=== PATIENT | female | born 1990 | race Caucasian/White ===

== ENCOUNTER 2016-06-06 20:43 | Emergency (ER) | payer MEDICAID ==
[~2016-06-06] VITALS: Wt 67.5 kg
[2016-06-06 23:24] LABS: ADD UMIC YES; URINE BILIRUBIN (Dip) NEGATIVE (NEGATIVE); URINE BLOOD (Dip) NEGATIVE (NEGATIVE); URINE COLOR LT. YELLOW (YELLOW); URINE GLUCOSE (Dip) NEGATIVE (NEGATIVE); URINE KETONES (Dip) TRACE (NEGATIVE); URINE LEUKOCYTE ESTERASE (Dip) 1+ (NEGATIVE); URINE NITRITE (Dip) NEGATIVE (NEGATIVE); URINE TOTAL PROTEIN (Dip) NEGATIVE (NEGATIVE); URINE UROBILINOGEN (Dip) 0.2 E.U./dL (0.1-1.0)
[2016-06-06 23:44] LABS: BACTERIA,URINE FEW; SQUAMOUS EPITHELIAL CELL,UR FEW; URINE RBCS 0-2 /HPF (0)
[2016-06-07] MEDS ORDERED: METR500T PO (00:03)
[2016-06-07 00:14] VITALS: BP 121/73; PULSE 86; RESP 18; TEMP 98.5
--- NOTE | 2016-06-07 02:25 | ERA ---
ER Documentation Chief Complaint Date/Time DATE: 06/07/16 TIME: 02:21 Chief Complaint Vaginal itch needs cream and 21 weeks . no contraction HPI Patient is a 26-year-old female who presents with a chief complaint of vaginal itching 1 week. Patient is 8 months and has had vaginal pruritus of 1 week denying any symptoms of dysuria, hematuria, oliguria, frequency increase , abdominal discomfort, back pain, dyspareunia, discharge, foul odor, or spotting/vaginal bleeding. She has not done anything to improve her symptoms. Patient has never had symptoms like this before. ROS All systems reviewed and are negative except as per history of present illness. Medications Home Meds Active Scripts Metronidazole* (Flagyl*) 500 Mg Tablet, 250 MG PO TID for 7 Days, TAB Prov:SHAY LUNA PA-C 06/07/16 Allergies Allergies: Coded Allergies: No Known Allergy (Unverified , 06/06/16) PMhx/Soc Medical and Surgical Hx: pt denies Medical Hx, pt denies Surgical Hx Hx Alcohol Use: No Hx Substance Use: No Hx Tobacco Use: No Smoking Status: Never smoker Physical Exam Vitals Vital Signs Date Time Temp Pulse Resp B/P Pulse Ox O2 Delivery O2 Flow Rate FiO2 06/07/16 00:14 98.5 86 18 121/73 100 Room Air 06/06/16 21:26 98.6 91 20 112/68 100 Physical Exam Const: Well-appearing 8 month 26-year-old female. Head: Atraumatic Eyes: Normal Conjunctiva ENT: Normal External Ears, Nose and Mouth. Neck: Full range of motion..~ No meningismus. Resp: Clear to auscultation bilaterally Cardio: Regular rate and rhythm, no murmurs Abd: Soft, non tender, non distended. Normal bowel sounds Skin: No petechiae or rashes Back: No midline or flank tenderness Ext: No cyanosis, or edema Neur: Awake and alert Psych: Normal Mood and Affect Results 24 hrs Laboratory Tests Test 06/06/16 22:50 Urine Color LT. YELLOW Urine Clarity CLEAR Urine pH 7.5 Urine Specific [place] 1.020 Urine Ketones TRACE Urine Nitrite NEGATIVE Urine Bilirubin NEGATIVE Urine Urobilinogen 0.2 E.U./dL Urine Leukocyte Esterase 1+ Urine Microscopic RBC 0-2/HPF Urine Microscopic WBC 2-5/HPF Urine Squamous Epithelial Cells FEW Urine Amorphous Phosphates FEW Urine Bacteria FEW Urine Hemoglobin NEGATIVE Urine Glucose NEGATIVE% Urine Total Protein NEGATIVE Procedures/MDM Patient has the sole symptom of itching without any other constitutional or focal findings and history or exam. Obtain a urinalysis to rule out infection of the urinary tract. Urinalysis was negative. We will go ahead and treat for suspected bacterial infection. History given involves no new sexual partners. History of sexual activity was obtained from patient and patient's separately. I talked to the and the nurse talk to patient. Due to this I will go ahead and treat for bacterial vaginosis/Trichomonas with metronidazole since she is past the first trimester. I have spoke with my attending about the assessment and plan of this case and he is in agreement. Departure Diagnosis: Primary Impression: BV (bacterial vaginosis) Condition: Stable Patient Instructions: Vaginal Infection: Bacterial Vaginosis Additional Instructions: Return to ER if symptoms worsen or change. follow up with press operator heavy duty in the next 2- 3 days SHAY LUNA PA-C Jun 07, 2016 02:25
== END 2016-06-07 00:15 | disposition home or self-care (01) ==
LOC: FTE 20:43
DX: O23.592 Infection of other part of genital tract in pregnancy, second trimester (principal); B96.89 Other specified bacterial agents as the cause of diseases classified elsewhere; Z3A.21 21 weeks gestation of pregnancy
CPT/HCPCS: 81001; 81003; Z7502; 99283

== ENCOUNTER 2016-09-14 12:06 | Inpatient (IN) | payer MEDICAID ==
[~2016-09-14] VITALS: Ht 149.9 cm; Wt 69.4 kg
[~2016-09-14 12:06] MED LIST: METR500T PO
[2016-09-14 12:16] VITALS: Ht 149.9 cm; Wt 69.4 kg
[2016-09-14] MEDS ORDERED: PRENAT PO (12:16)
[2016-09-14 12:18] VITALS: BP 118/74; PULSE 90; RESP 18
[2016-09-14] MEDS: LACTATED RINGER'S 1,000 ML IV SCH ×2 (13:00→18:00)
[2016-09-14] MEDS ORDERED: AMPICILLIN 2 GM/NS (PMX) 100 ML IVPB ONE ×2 (13:00→19:00)
[2016-09-14] MEDS ORDERED: BETAMET NA PHOS/AC(6 MG/ML) 5ML INJ IM ONE ×2 (13:00→14:00)
[2016-09-14] MEDS ORDERED: LACTATED RINGER'S 1,000 ML IV SCH (13:32)
[2016-09-14] MEDS ORDERED: LACTATED RINGER'S 1,000 ML IV PRN (13:32)
--- NOTE | 2016-09-14 13:38 | TRIAGE ---
OB Triage Datetime Report Generated by CPN: 09/14/2016 13:38 Datetime: 09/14/2016 13:15 Stage of : OB Triage Maternal Assessment Level of Consciousness: Fully Conscious Labor Evaluation Frequency: 1-4 Monitor Mode: External Quality: Moderate Resting Tone Dixie: Relaxed Heart Rate FHR Baseline Rate: 135 Monitor Mode: External US Variability: Moderate 6-25 bpm Accelerations: 15X15 Decelerations: None Category: Category I Pain Assessment Pain Scale: 4 Pain Presence: Intermittent Pain Type: Cramping Pain Location: Abdomen Pain Goal: 3 Pain Relief Measures: Comfort Measures Membrane Status: Ruptured Vaginal Bleeding: Normal Show Datetime: 09/14/2016 12:47 Vaginal Exam Dilatation (cms): 3.5 Effacement (%): 80 Station: -2 Exam By: tara Membrane Status: Ruptured Membranes Rupture Method: Spontaneous Amniotic Fluid Color: Clear Amniotic Fluid Amount: Moderate Amniotic Fluid Odor: Normal Vaginal Bleeding: Normal Show Pool: Positive Nitrazine: Positive Cervix, Consistency: Soft Cervix, Position: Midposition Presentation 'A': Cephalic Datetime: 09/14/2016 12:15 Assessment Type: Triage Maternal Assessment Level of Consciousness: Fully Conscious DTR's/Clonus: DTRs 2+; No Clonus Headache: Denies Blurred Vision: No Respiratory Effort: Unlabored; Regular Rhythm; Equal Expansion Breath Sounds, Left: Clear and Equal Breath Sounds, Right: Clear and Equal Nausea/Vomiting: Denies RUQ Epigastric Pain: Denies Lower Extremities Edema: None Degree: None Upper Extremities Edema: None Degree: None Facial Edema: None Fall Risk Assessment History of Falling: (0) No Secondary Diagnosis: (0) No Ambulatory Aid: (0) Bedrest/Nurse Assist IV Therapy: (0) No Gait: (0) Normal/Bedrest/Immobile Mental Status: (0) Oriented to Own Ability Fall Score: 0 Fall Risk Score Definition: No Risk: No action required Datetime: 09/14/2016 12:13 Time of Arrival: 09/14/2016 12:00 EGA: 35.3 Arrived By: Ambulatory Arrived From: Home Chief Complaint: pt here c/o possible srom Movement: Present Contractions: Irregular Rupture of Membranes: Unsure Vaginal Bleeding: None Vaginal Discharge: Denies Recent Sexual Intercouse: Denies Abdominal Trauma: Not Applicable Patient Complaints: None Time Provider Notified: 09/14/2016 12:55 Provider Notified: LAVONNE Initial Plan: SVE, BPP, STERILE SPEC., NITRA, ROM PLUS, EFW Datetime: 09/14/2016 12:10 Monitor Mode: External Monitor Mode: External US
[2016-09-14] MEDS ORDERED: LIDOCAINE 1% (MPF) 30 ML INJ INJ PRN (14:00)
[2016-09-14] MEDS ORDERED: CARBOPROST 250 MCG INJ IM PRN ×2 (14:00→22:00)
[2016-09-14] MEDS ORDERED: BUTORPHANOL 2 MG INJ IV PRN (14:00)
[2016-09-14] MEDS ORDERED: METHYLERGONOVINE 0.2 MG INJ IM PRN ×2 (14:00→22:00)
[2016-09-14] MEDS ORDERED: MINERAL OIL LIGHT 10 ML VIAL TOP PRN (14:00)
[2016-09-14] MEDS ORDERED: OXYTOCIN 30 UNITS/LR 500 ML IV PRN ×2 (14:00→22:00)
[2016-09-14] MEDS ORDERED: MISOPROSTOL 200 MCG TAB PR PRN ×2 (14:00→22:00)
[2016-09-14] MEDS ORDERED: IBUPROFEN 600 MG TAB PO PRN ×2 (14:00)
[2016-09-14] MEDS ORDERED: OXYTOCIN 30 UNITS/LR 500 ML IV SCH ×2 (14:00)
[2016-09-14 14:06] LABS: ADD SCAN DIFF NO
[2016-09-14 14:09] LABS: BASOPHILS % 0.1 % (0.0-2.0); EOSINOPHILS % 0.1 % (0.0-7.0); HEMOGLOBIN 12.2 g/dl (12.0-16.0); LYMPHOCYTES # 2.2 10^3/ul (0.8-2.9); LYMPHOCYTES % 12.5 % (15.0-51.0); MEAN CORPUSCULAR HEMOGLOBIN 28.7 pg (29.0-33.0); MEAN CORPUSCULAR HGB CONC 33.9 g/dl (32.0-37.0); MEAN CORPUSCULAR VOLUME 84.7 fl (82.0-101.0); MEAN PLATELET VOLUME 9.8 fl (7.4-10.4); MONOCYTE # 1.1 10^3/ul (0.3-0.9); MONOCYTES % 6.6 % (0.0-11.0); NEUTROPHIL # 13.9 10^3/ul (1.6-7.5); NEUTROPHILS % 80.1 % (39.0-77.0); PLATELET COUNT 314 10^3/UL (140-415); RED BLOOD COUNT 4.25 10^6/ul (4.20-5.40); WHITE BLOOD COUNT 17.3 10^3/ul (4.8-10.8)
--- NOTE | 2016-09-14 14:10 | RADRPT ---
PROCEDURE: OB ultrasound for biophysical profile CLINICAL INDICATION: Biophysical profile. . TECHNIQUE: Multiple sonographic images of the pelvis were obtained. Transabdominal views are obta ined. COMPARISON: 09/14/2016 FINDINGS: Single intrauterine gestation. Presentation: Cephalic. Placenta: Posterior No evidence of placental abruption. No evidence of placenta previa. breathing movement = 2/2 tone = 2/2 motion = 2/2 DAVID = 2/2 DAVID = 16.1 cm heart rate: 165 beats per minute IMPRESSION: Single intrauterine gestation. Biophysical profile 10/08 RPTAT: AADD .Lester Amaya MD, MD Date Time Electronically viewed and signed by .Lester Amaya MD, on 09/14/2016 14:10 .B/
--- NOTE | 2016-09-14 14:26 | RADRPT ---
PROCEDURE: Obstetrical ultrasound. CLINICAL INDICATION: , evaluation. Pelvic pain. TECHNIQUE: Transabdominal sonographic images of the pelvis are obtained. COMPARISON: 05/29/2016 FINDINGS: Single intrauterine gestation. There is a cephalic presentation. Measurements were made in order to determine age. The results are as follows: BPD = 8.58 cm 34 weeks 4 day HC = 31.82 cm 26-srrz-0-day AC = 31.55 cm 35 weeks 3-day FL = 6.56 cm 59-jrhf-9-day Heart rate = 152 beats per minute The placenta is posterior. There is no evidence for an abruption or placenta previa. Ovaries are not visualized. IMPRESSION: Single intrauterine gestation of approximately 35 weeks 0 days by ultrasound criteria. [place] estimated weight = 2562 g; 35 percentile for gestational age of 35 weeks 3 days. RPTAT: AADD .Lester Amaya MD, MD Date Time Electronically viewed and signed by .Lester Amaya MD, on 09/14/2016 14:25 .B/
[2016-09-14] MEDS ORDERED: FENTAnyl 2MCG/ML-ROPIV 0.2% 100 ML ONE (14:27)
[2016-09-14 14:39] LABS: INR 0.97; PROTIME 12.9 Sec (12.2-14.2)
[2016-09-14 14:40] LABS: PARTIAL THROMBOPLASTIN TIME 36.9 Sec (25.0-35.0)
[2016-09-14] MEDS ORDERED: FENTAnyl 2MCG/ML-ROPIV 0.2% 100 ML BAG EPI SCH (15:00)
[2016-09-14] MEDS ORDERED: ONDANSETRON 4 MG INJ IV PRN (15:00)
[2016-09-14] MEDS ORDERED: EPHEDrine SULFATE 50 MG/5 ML SYG IV PRN (15:00)
[2016-09-14] MEDS ORDERED: NALOXONE (0.4 MG/ML) INJ IV PRN (15:00)
[2016-09-14 15:47] LABS: BARBITURATES Negative (NEGATIVE); BENZODIAZEPINES Negative (NEGATIVE); CANNABINOIDS Negative (NEGATIVE); COCAINE Negative (NEGATIVE); OPIATES Negative (NEGATIVE)
[2016-09-14] MEDS ORDERED: AMPICILLIN 1 GM/NS (PMX) 50 ML IV SCH ×2 (17:00→23:00)
--- NOTE | 2016-09-14 17:04 | HP ---
Date/Time of Note Date/Time of Note DATE: 09/14/16 TIME: 16:53 OB - History Hx of Present Free Text/Dictation admitted in active labor at 35 weeks gestation C/O onset of uterine contractions started 0300 Am and SROM at 1100 AM Chief Complaint: Complaining of labor pain Estimated Due Date: Oct 16, 2016 : 1 Para: 0 Care: Good Care Ultrasounds: Normal mid trimester US Obstetrical Complications: None, Other ( labor) Medical Complications: None Past Family/Social History * Past Medical, Surgical, Family and Obstetric Histories reviewed from chart. Blood Type: O+ RPR/VDRL: Unknown GBS Status: Unknown HBsAG: Unknown OB Admission Exam Vital Signs Vital Signs Vital Signs Date Time Temp Pulse Resp B/P Pulse Ox O2 Delivery O2 Flow Rate FiO2 09/14/16 12:18 97.9 90 18 118/74 99 Room Air Physical Exam HEENT: WNL Heart: Rhythm Normal Lungs: Clear, Equal Abdomen: WNL Extremities: Normal Reflexes: Normal Cervical Dilatation: 5cm Effacement: 100% Station: -3 Membranes: Ruptured Amniotic Fluid: Clear Heart Rate: 150's Accelerations: Accelerations Present Decelerations: No Decelerations Varibility: Moderate Contractions on Admission: < 5 Minutes Apart Date/Time Contractions Began: 09/14/2016 at 3:00 Frequency of Contractions: Every 5 minutes Duration: Over 60 seconds Intensity: Firm Last 72 hours Lab Results CBC & BMP 09/14/16 13:55 OB Assessment/Plan Reason for admission: active labor, labor Other Assessment: 35+ weeks gestation Other plan: Proceed with labor IV antibiotic Steroids LYNN STONE MD Sep 14, 2016 17:03
--- NOTE | 2016-09-14 17:07 | LDN ---
Date/Time of Note Date/Time of Note DATE: 09/14/16 TIME: 17:04 Delivery Summary Normal spontaneous vaginal delivery of a viable over intact perineum Weeks of Gestation 35 weeks plus Placenta Delivered: Spontaneously, Intact & Complete Meconium: none Episiotomy: No Perineal laceration: 0 Laceration repair: Small vaginal laceration was repaired using 2-0 Vicryl, 2 times vestibular lacerations were repaired using 4-0 chromic Anesthesia type: Epidural Estimated blood loss: 300 Sponge & Needle done & correct: Yes All needle counts correct: Yes Any foreign bodies felt in the: No Problems: Infant Delivery Information Sex Sex: male Apgars 1 Minute: 9 5 Minute: 9 Suctioning Nose & mouth suctioned at lakeisha: Yes Delee suction performed: No Umbilical Cord Umbilical cord with: 3 Vessels Cord presentations: nuchal cord Nuchal cord present X: 1 Cord Blood was obtained: Yes Mother & Baby Disposition Disposition Mom & Baby to Maternity; Good: Yes Mom transferred to: Other (Maternity) Baby to NICU: No LYNN STONE MD Sep 14, 2016 17:07
[2016-09-14] MEDS ORDERED: MEPERIDINE 25 MG INJ IV ONE (18:00)
[2016-09-14] MEDS ORDERED: GENTAMICIN 120 MG/NS (PMX) 100 ML IVPB SCH (19:00)
[2016-09-14 21:45] VITALS: BP 111/69; PULSE 102; RESP 18
[2016-09-14] MEDS ORDERED: DIBUCAINE 1% 30 GM OINT PR PRN (22:00)
[2016-09-14] MEDS ORDERED: ACETAMINOPHEN/CODEINE #3 TAB PO PRN ×2 (22:00)
[2016-09-14] MEDS ORDERED: WITCH HAZEL/GLYCERIN PAD PR PRN (22:00)
[2016-09-14] MEDS ORDERED: LANOLIN 7 GM TUBE TOP PRN (22:00)
[2016-09-14] MEDS ORDERED: BENZOCAINE 20% 56 ML SPRAY TOP PRN (22:00)
[2016-09-14] MEDS ORDERED: ZOLPIDEM 5 MG TAB PO PRN (22:00)
[2016-09-14 22:15] VITALS: BP 107/67; PULSE 97; RESP 18
[2016-09-14] MEDS: LACTATED RINGER'S 1,000 ML IV* SCH (22:33)
[2016-09-15] MEDS: AMPICILLIN/SULB 3 GM/NS (PMX) 100 ML IVPB SCH ×4 (00:10→17:38)
[2016-09-15 00:23] VITALS: BP 106/63; PULSE 95; RESP 18
[2016-09-15 04:30] VITALS: BP 105/64; PULSE 68; RESP 18
[2016-09-15] MEDS: LACTATED RINGER'S 1,000 ML IV* SCH ×3 (05:31→21:31)
[2016-09-15] MEDS: IBUPROFEN 600 MG TAB PO SCH ×3 (05:46→17:38)
[2016-09-15 07:30] VITALS: BP 102/58; PULSE 79; RESP 19
[2016-09-15 08:28] LABS: ADD SCAN DIFF NO
[2016-09-15 08:41] LABS: ABNORMAL IP MESSAGE 1; BASOPHILS % 0.1 % (0.0-2.0); HEMATOCRIT 29.1 % (37.0-47.0); HEMOGLOBIN 9.9 g/dl (12.0-16.0); LYMPHOCYTES # 2.3 10^3/ul (0.8-2.9); LYMPHOCYTES % 9.7 % (15.0-51.0); MEAN CORPUSCULAR HEMOGLOBIN 28.7 pg (29.0-33.0); MEAN CORPUSCULAR VOLUME 84.3 fl (82.0-101.0); MEAN PLATELET VOLUME 10.7 fl (7.4-10.4); MONOCYTE # 1.9 10^3/ul (0.3-0.9); MONOCYTES % 8.1 % (0.0-11.0); NEUTROPHIL # 19.2 10^3/ul (1.6-7.5); PLATELET COUNT 304 10^3/UL (140-415); RED BLOOD COUNT 3.45 10^6/ul (4.20-5.40); RED CELL DISTRIBUTION WIDTH 12.8 % (11.5-14.5); WHITE BLOOD COUNT 23.7 10^3/ul (4.8-10.8)
[2016-09-15] MEDS: MAGNESIUM HYDROXIDE 30ML CUP PO SCH ×2 (09:00→21:35)
[2016-09-15] MEDS: SENNA/DOCUSATE NA (8.6MG/50MG) TAB PO SCH ×2 (11:20→21:35)
[2016-09-15 16:00] VITALS: BP 100/66; PULSE 72; RESP 19
--- NOTE | 2016-09-15 16:06 | PN ---
Date/Time of Note Date/Time of Note DATE: 09/15/16 TIME: 16:03 Assessment/Plan VTE Prophylaxis VTE Prophylaxis Intervention: ambulation Lines/Catheters IV Catheter Type (from [facility]): Saline Lock Assessment/Plan Assessment/Plan day 1 Currently stable White count over 20,000 with left shift We will continue IV antibiotic Obtain culture results next day Repeat CBC next day Subjective 24 Hr Interval Summary Free Text/Dictation No major complaint Constitutional: improved, no complaints Eyes: no complaints ENT: no complaints Respiratory: no complaints Cardiovascular: no complaints Gastrointestinal: no complaints Genitourinary: no complaints Musculoskeletal: no complaints Skin: no complaints Neurologic: no complaints Endocrine: no complaints Lymphatic: no complaints Psychological: nl mood/affect, no complaints Immunologic: no complaints Exam/Review of Systems Vital Signs Vitals Vital Signs Date Time Temp Pulse Resp B/P Pulse Ox O2 Delivery O2 Flow Rate FiO2 09/15/16 11:20 97.8 09/15/16 07:30 79 19 102/58 Room Air 09/14/16 12:18 99 Intake and Output 09/14/16 09/14/16 09/15/16 15:00 23:00 07:00 Intake Total 2050 ml 835 ml Output Total 2100 ml Balance -50 ml 835 ml Exam T-max was over 100 less than 24 hours ago Constitutional: alert, oriented, well developed Psych: nl mood/affect, no complaints Head: atraumatic, normocephalic Eyes: EOMI, PERRL, nl conjunctiva, nl lids, nl sclera ENMT: nl external ears & nose, nl lips & teeth, nl nasal mucosa & septum Neck: non-tender, supple Respiratory: clear to auscultation, normal air movement Cardiovascular: nl pulses, regular rate and rhythm Gastrointestinal: nl liver, spleen, non-tender, soft Genitourinary - Female: other (Lochia moderate), uterus (Firm, side) Musculoskeletal: nl extremities to inspection, nl gait and stance Extremities: normal pulses Neurological: GLUE SIZE MACHINE OPERATOR II-XII intact, nl mental status, nl speech, nl strength Skin: nl turgor, No rash or lesions Lymph: nl lymph nodes Results Result Diagram: 09/15/16 0653 Results 24 hrs Laboratory Tests Test 09/15/16 06:53 White Blood Count 23.7 #H Red Blood Count 3.45 L Hemoglobin 9.9 L Hematocrit 29.1 L Mean Corpuscular Volume 84.3 Mean Corpuscular Hemoglobin 28.7 L Mean Corpuscular Hemoglobin Concent 34.0 Red Cell Distribution Width 12.8 Platelet Count 304 Mean Platelet Volume 10.7 H Neutrophils % 81.0 H Lymphocytes % 9.7 L Monocytes % 8.1 Eosinophils % 0.0 Basophils % 0.1 Nucleated Red Blood Cells % 0.0 Neutrophils # 19.2 H Lymphocytes # 2.3 Monocytes # 1.9 H Eosinophils # 0.0 Basophils # 0.0 Nucleated Red Blood Cells # 0.0 Medications Medications Current Medications Lactated Ringer's (Lr) 1,000 ml @ 125 mls/hr Q8H IV* Last administered on 09/14 22:33; Admin Dose 125 MLS/HR; Start 09/14/16 at 21:31 Ibuprofen (Motrin) 600 mg Q6 PO Last administered on 09/15/16 11:20; Admin Dose 600 MG; Start 09/15/16 at 06:00 Acetaminophen/ Codeine Phosphate (Tylenol No.3) 1 tab Q4H PRN PO PAIN LEVEL 1-5 ; Start 09/14/16 at 22:00 Acetaminophen/ Codeine Phosphate (Tylenol No.3) 2 tab Q4H PRN PO PAIN LEVEL 6- 10; Start 09/14/16 at 22:00 Zolpidem Tartrate (Ambien) 5 mg QHS PRN PO INSOMNIA; Start 09/14/16 at 22:00 Senna/Docusate Sodium (Senokot-S) 1 tab BID PO Last administered on 09/15/16 11:20; Admin Dose 1 TAB; Start 09/15/16 at 09:00 Magnesium Hydroxide (Milk Of Mag) 30 ml Q12 PO ; Start 09/15/16 at 09:00 Measles/Mumps/ Rubella Vaccine Live (Mmr Ii Vaccine) 0.5 ml ONCE ONCE SC* ; Start 09/16/16 at 09:00; Stop 09/16/16 at 09:01 Diphtheria/ Tetanus/Acell Pertussis (Adacel) 0.5 ml ONCE ONCE IM* ; Start at 09:00; Stop 09/16/16 at 09:01 Varicella Virus Vaccine Live 1350 unit 1,350 unit ONCE ONCE SC* ; Start at 09:00; Stop 09/16/16 at 09:01 Oxytocin/Lactated Ringer's 500 ml @ 0 mls/hr ONCE PRN IV For Hemorrhage Management; Start 09/14/16 at 22:00 Methylergonovine Maleate (Methergine) 0.2 mg ONCE PRN IM VAGINAL BLEEDING; Start 09/14/16 at 22:00 Carboprost Tromethamine (Hemabate) 250 mcg ONCE PRN IM VAGINAL BLEEDING; Start 09/14/16 at 22:00 Misoprostol 1000 mcg 1,000 mcg ONCE PRN OR VAGINAL BLEEDING; Start 09/14/16 at 22:00 Ampicillin Sodium/ Sulbactam Sodium (Unasyn 3gm/NS (Pmx)) 100 ml @ 100 mls/hr Q6 IVPB Last administered on 09/15/16t 11:20; Admin Dose 100 MLS/HR; Start at 00:00 LYNN STONE MD Sep 15, 2016 16:05
[2016-09-15 20:40] VITALS: BP 96/63; PULSE 86; RESP 18
[2016-09-16] MEDS: IBUPROFEN 600 MG TAB PO SCH ×4 (00:20→18:07)
[2016-09-16] MEDS: AMPICILLIN/SULB 3 GM/NS (PMX) 100 ML IVPB SCH ×3 (00:20→11:45)
[2016-09-16 04:00] VITALS: BP 109/72; PULSE 96; RESP 18
[2016-09-16] MEDS: LACTATED RINGER'S 1,000 ML IV* SCH (05:31)
[2016-09-16 08:08] LABS: ADD SCAN DIFF NO
[2016-09-16 08:17] LABS: BASOPHILS % 0.2 % (0.0-2.0); EOSINOPHILS % 0.1 % (0.0-7.0); HEMATOCRIT 28.4 % (37.0-47.0); HEMOGLOBIN 9.5 g/dl (12.0-16.0); LYMPHOCYTES # 3.6 10^3/ul (0.8-2.9); LYMPHOCYTES % 21.2 % (15.0-51.0); MEAN CORPUSCULAR HEMOGLOBIN 28.7 pg (29.0-33.0); MEAN CORPUSCULAR HGB CONC 33.5 g/dl (32.0-37.0); MEAN CORPUSCULAR VOLUME 85.8 fl (82.0-101.0); MEAN PLATELET VOLUME 10.3 fl (7.4-10.4); MONOCYTE # 1.1 10^3/ul (0.3-0.9); MONOCYTES % 6.7 % (0.0-11.0); NEUTROPHIL # 11.9 10^3/ul (1.6-7.5); NEUTROPHILS % 70.3 % (39.0-77.0); PLATELET COUNT 329 10^3/UL (140-415); RED BLOOD COUNT 3.31 10^6/ul (4.20-5.40); RED CELL DISTRIBUTION WIDTH 13.2 % (11.5-14.5)
[2016-09-16 08:30] VITALS: BP 109/70; PULSE 81; RESP 16
[2016-09-16] MEDS ORDERED: VARICELLA VACCINE LIVE/PF 1,350 UNIT/0.5 ML ML SC* ONE (09:00)
[2016-09-16] MEDS: MAGNESIUM HYDROXIDE 30ML CUP PO SCH (09:00)
[2016-09-16] MEDS ORDERED: MEASLES,MUMPS,RUBELLA VACCINE INJ SC* ONE (09:00)
[2016-09-16] MEDS ORDERED: DIPHTH/TET/ACEL PERTUSS (ADULT) 0.5 ML VIAL IM* ONE (09:00)
[2016-09-16] MEDS: SENNA/DOCUSATE NA (8.6MG/50MG) TAB PO SCH (09:00)
[2016-09-16 15:30] VITALS: BP 115/69; PULSE 91; RESP 16
[2016-09-16] MEDS ORDERED: AMOX1TAB10 PO (16:36)
[2016-09-16] MEDS ORDERED: IBUP-1542 PO (16:36)
--- NOTE | 2016-09-16 16:38 | PD.PPDC ---
CASHIER RECEPTIONIST Discharge Instruction Provider Information Physician Information 26-year-old female had a spontaneous vaginal Diagnosis Final Diagnosis: Status post vaginal Condition Patient Condition: Good Diet Diet: Resume Regular Diet Activity/Restrictions Activity: Normal Activity May Shower Restrictions: Nothing in the Vagina Return to Work or School: Nov 04, 2016 Follow-up Follow-up with Physician: 4, Week/Weeks (In clinic for check) Return to clinic for OB Instructions: Breast Tenderness Depression LYNN STONE MD Sep 16, 2016 16:37
--- NOTE | 2016-09-16 16:39 | DS ---
Date/Time of Note Date/Time of Note DATE: 09/16/16 TIME: 16:38 Obstetrical Discharge Record Final Diagnosis Final Diagnosis: delivered Other Final Diagnosis Status post vaginal delivery Vaginal Delivery Obstetrical Delivery: Spontaneous, Laceration, Repaired Complications Labor Augmentation: No Induction: No Condition on Discharge Physical Assessment Last Vitals: See nurse's notes Voiding: Yes Bowel Movement: Yes Breast: Soft, non-tender, Filling Fundus: Firm Abdomen and Incision: Soft bowel sounds positive Episiotomy: Perineum clean Calf Tenderness: No Patient Condition: Good LYNN STONE MD Sep 16, 2016 16:39
[2016-09-16] MEDS ORDERED: AMOXICILLIN/CLAV 875 MG TAB PO SCH (21:00)
[2016-09-17 11:33] LABS: RUBELLA ANTIBODY - IGG 4.86 index
== END 2016-09-16 18:30 | disposition home or self-care (01) | DRG 775 ==
LOC: L-D 12:06 → OBT 12:06 → L-D 13:33 → PP1 21:30
PROVIDERS: ADMIT Obstetrics & Gynecology; ATTEND Obstetrics & Gynecology
PROC: 10E0XZZ Delivery of Products of Conception, External Approach (ICD-10-PCS; principal; 2016-09-14)
PROC: 0UQGXZZ Repair Vagina, External Approach (ICD-10-PCS; 2016-09-14)
PROC: 3E033VJ Introduction of Other Hormone into Peripheral Vein, Percutaneous Approach (ICD-10-PCS; 2016-09-14)
DX: O71.4 Obstetric high vaginal laceration alone (principal); O60.14X0 Preterm labor third trimester with preterm delivery third trimester, not applicable or unspecified; O69.81X0 Labor and delivery complicated by cord around neck, without compression, not applicable or unspecified; Z3A.35 35 weeks gestation of pregnancy; Z37.0 Single live birth
CPT/HCPCS: 62319; 76815; 76818; 80307; 84112; 85025; 85610; 85730; 86592; 86703; 86762; 86900; 86901; 87040; 87086; 87340; 88307; 90715; 90716; 99464; G0463; J0290; J0295; J0595; J0702; J1580; J2175; J2590; J3010; J7120

== ENCOUNTER 2016-11-17 11:16 | Emergency (ER) | payer MEDICAID ==
[~2016-11-17] VITALS: Ht 149.9 cm; Wt 62.5 kg
[~2016-11-17 11:16] MED LIST changes: +AMOX1TAB10 PO; +IBUP-1542 PO; -METR500T PO; +PRENAT PO
[2016-11-17 11:20] VITALS: Ht 149.9 cm; Wt 62.5 kg
[2016-11-17] MEDS ORDERED: LIDOCAINE 2% (MDV) 20 ML INJ INJ STA (11:44)
[2016-11-17] MEDS ORDERED: CEPH500C PO (11:58)
[2016-11-17] MEDS ORDERED: BACTRIM PO (11:58)
[2016-11-17] MEDS ORDERED: CEPHALEXIN 500 MG CAP PO ONE (12:00)
[2016-11-17] MEDS ORDERED: TRIMETHOPRIM/SULFAMETHOX (DS) TAB PO ONE (12:00)
--- NOTE | 2016-11-17 12:15 | ERD ---
ER Documentation Chief Complaint Date/Time DATE: 11/17/16 TIME: 12:13 Chief Complaint BILATERAL BIG TOES ENGROWN NAIL HPI 26-year-old female presents with bilateral ingrown toenails for past few days which increased pain today right greater than left. Denies fever. Denies trauma. Denies medication ROS All systems reviewed and are negative except as per history of present illness. Medications Home Meds Active Scripts Trimethoprim-Sulfamethoxazole* (Bactrim*) 400-80 Mg Tab, 1 TAB PO BID, #14 TAB Prov:TANIKA LANZA PA-C 11/17/16 Cephalexin* (Cephalexin*) 500 Mg Capsule, 500 MG PO Q6, #28 CAP Prov:TANIKA LANZA PA-C 11/17/16 Ibuprofen* (Ibuprofen*) 600 Mg Tablet, 600 MG PO Q6, #30 TAB 0 Refills Prov:LYNN STONE MD 09/16/16 Amoxicillin/Potassium Clav (Amox-Clav 875-125 mg Tablet) 875-125 mg Tab, 875 MG PO BID, #14 TAB 0 Refills Prov:LYNN STONE MD 09/16/16 Reported Medications Multivit/Min/Fol Ac/Iron/Pren* ( S*) 1 Tab Tab, 1 TAB PO DAILY, TAB 09/14/16 Allergies Allergies: Coded Allergies: No Known Allergy (Unverified , 06/06/16) PMhx/Soc History of Surgery: No Anesthesia Reaction: No Hx Neurological Disorder: No Hx Respiratory Disorders: No Hx Cardiac Disorders: No Hx Psychiatric Problems: No Hx Miscellaneous Medical Probl: No Hx Alcohol Use: No Hx Substance Use: No Hx Tobacco Use: No Smoking Status: Never smoker Physical Exam Vitals Vital Signs Date Time Temp Pulse Resp B/P Pulse Ox O2 Delivery O2 Flow Rate FiO2 11/17/16 11:20 99.3 61 18 122/51 97 Physical Exam Const: [] Head: Atraumatic Eyes: Normal Conjunctiva ENT: Normal External Ears, Nose and Mouth. Neck: Full range of motion..~ No meningismus. Resp: Clear to auscultation bilaterally Cardio: Regular rate and rhythm, no murmurs Abd: Soft, non tender, non distended. Normal bowel sounds Skin: Bilateral ingrown toenails, mild purulent pocket in the right toe Back: No midline or flank tenderness Ext: No cyanosis, or edema Neur: Awake and alert Psych: Normal Mood and Affect Results 24 hrs Current Medications Medications (Trade) Dose Ordered Sig/Ladarius Route PRN Reason Start Time Stop Time Status Last Admin Dose Admin Lidocaine (Xylocaine 2% (Mdv) 20 ml) 20 ml ONCE STAT INJ 11/17/16 11:44 11/17/16 11:46 DC Cephalexin (Keflex) 500 mg ONCE ONCE PO 11/17/16 12:00 11/17/16 12:01 DC 11/17/16 11:49 Trimethoprim/ Sulfamethoxazole (Bactrim (Ds)) 1 tab ONCE ONCE PO 11/17/16 12:00 11/17/16 12:01 DC 11/17/16 11:49 Procedures/MDM MDM: Patient presents to the ED with an ingrown toe nail Bilaterally and paronychia of the right toe. PROCEDURE NOTE: consent was obtained. Region was cleansed with povidone-iodine solution. A standard digital block was preformed using approximately 5cc of lidocaine without epinephrine. A wait for 10 minutes was allowed for anesthetic to become effective. The region was cleansed again with povidone-iodine solution. A nail elevator was slid under the cuticle to separate the nail plate from the overlying proximal nail fold. Using an 11 blade a small incision was made for a mild purulent discharge to come out.. Xeroform guaze was then applied followed by bulky dry gauze dressing. The patient tolerated the procedure well without complications. Standard post-procedure care is explained and return precautions are given. DISPOSITION: hemodynamically stable and neurovascularly intact pre & post treatment. Prescriptions Keflex and Bactrimhave been given. Discussed the follow -up with podiatry, discussed to return sooner if condition worsens. Patient understood and agreed with this plan Departure Diagnosis: Primary Impression: IGTN (ingrowing toe nail) Additional Impression: Paronychia Condition: Stable Patient Instructions: Understanding Ingrown Toenails, Ingrown Toenail, Infected (Abx Only), Paronychia Additional Instructions: Visite a david sebastián larios para un EXAMEN.Regrese a estas instalaciones si no se mejora danyelle esperbamos o danyelle le dijimos. [place] toda la medicina fernanda y danyelle se le indic. Regrese a estas instalaciones si no se mejora danyelle esperbamos o danyelle le dijimos. TANIKA LANZA PA-C Nov 17, 2016 12:15
== END 2016-11-17 12:24 | disposition home or self-care (01) ==
LOC: FTE 11:16
DX: L03.031 Cellulitis of right toe (principal)
CPT/HCPCS: 10061; Z7502; Z7610

== ENCOUNTER 2016-12-08 23:57 | Emergency (ER) | payer MEDICAID ==
[~2016-12-08] VITALS: Ht 152.4 cm; Wt 64.0 kg
[~2016-12-08 23:57] MED LIST changes: +BACTRIM PO; +CEPH500C PO
[2016-12-09] VITALS: Ht 152.4 cm; Wt 64.0 kg
[2016-12-09] MEDS ORDERED: LIDOCAINE 2% (MDV) 20 ML INJ INJ STA (00:13)
[2016-12-09] MEDS ORDERED: CLIN-73 PO (00:37)
[2016-12-09 00:55] VITALS: BP 127/87; PULSE 88; RESP 18; TEMP 99.1
--- NOTE | 2016-12-09 00:58 | ERD ---
ER Documentation Chief Complaint Date/Time DATE: 12/09/16 TIME: 00:57 Chief Complaint c/o left ingrown toe nail x 1 week HPI 6-year-old female presenting to the emergency department complaining of left ingrown toenail for the past week. Patient was evaluated at this facility about a week ago for right ingrown toenail and was given antibiotics. Patient has finished the antibiotics and now has left ingrown toenail. Patient states the pain is severe. Denies any fevers ROS All systems reviewed and are negative except as per history of present illness. Medications Home Meds Active Scripts Clindamycin Hcl* (Clindamycin Hcl*) 300 Mg Capsule, 300 MG PO TID for 5 Days, CAP Prov:TANIKA LANZA PA-C 12/09/16 Trimethoprim-Sulfamethoxazole* (Bactrim*) 400-80 Mg Tab, 1 TAB PO BID, #14 TAB Prov:TANIKA LANZA PA-C 11/17/16 Cephalexin* (Cephalexin*) 500 Mg Capsule, 500 MG PO Q6, #28 CAP Prov:TANIKA LANZA PA-C 11/17/16 Ibuprofen* (Ibuprofen*) 600 Mg Tablet, 600 MG PO Q6, #30 TAB 0 Refills Prov:LYNN STONE MD 09/16/16 Amoxicillin/Potassium Clav (Amox-Clav 875-125 mg Tablet) 875-125 mg Tab, 875 MG PO BID, #14 TAB 0 Refills Prov:LYNN STONE MD 09/16/16 Reported Medications Multivit/Min/Fol Ac/Iron/Pren* ( S*) 1 Tab Tab, 1 TAB PO DAILY, TAB 09/14/16 Allergies Allergies: Coded Allergies: No Known Allergy (Unverified , 06/06/16) PMhx/Soc Medical and Surgical Hx: pt denies Medical Hx, pt denies Surgical Hx History of Surgery: No Anesthesia Reaction: No Hx Neurological Disorder: No Hx Respiratory Disorders: No Hx Cardiac Disorders: No Hx Psychiatric Problems: No Hx Miscellaneous Medical Probl: No Hx Alcohol Use: No Hx Substance Use: No Hx Tobacco Use: No Smoking Status: Never smoker Physical Exam Vitals Vital Signs Date Time Temp Pulse Resp B/P Pulse Ox O2 Delivery O2 Flow Rate FiO2 12/09/16 00:00 98.3 78 18 123/72 98 Physical Exam Const: [] Head: Atraumatic Eyes: Normal Conjunctiva ENT: Normal External Ears, Nose and Mouth. Neck: Full range of motion..~ No meningismus. Resp: Clear to auscultation bilaterally Cardio: Regular rate and rhythm, no murmurs Abd: Soft, non tender, non distended. Normal bowel sounds Skin: Ingrown lateral toenail Back: No midline or flank tenderness Ext: No cyanosis, or edema Neur: Awake and alert Psych: Normal Mood and Affect Results 24 hrs Current Medications Medications (Trade) Dose Ordered Sig/Ladarius Route PRN Reason Start Time Stop Time Status Last Admin Dose Admin Lidocaine (Xylocaine 2% (Mdv) 20 ml) 20 ml ONCE STAT INJ 12/09/16 00:13 12/09/16 00:15 DC Procedures/MDM 26-year-old female patient presents to the ED with an ingrown toe nail, partial nail avulsion procedure was done to relieve patient's pain. PROCEDURE NOTE: consent was obtained. Region was cleansed with povidone-iodine solution. A standard digital block was preformed using approximately 4cc of lidocaine without epinephrine. A wait for 10 minutes was allowed for anesthetic to become effective. The region was cleansed again with povidone-iodine solution. A nail elevator was slid under the cuticle to separate the nail plate from the overlying proximal nail fold. The lateral 20-30% of the nail plate was cut free using bandage scissors and gently pulled free with a hemostat. Xeroform gauze was then applied followed by bulky dry gauze dressing. The patient tolerated the procedure well without complications. Standard post- procedure care is explained and return precautions are given. DISPOSITION: hemodynamically stable and neurovascularly intact pre & post treatment. Prescriptions clinda have been given for mild paronychia. Instructions to return in two days for a wound check has been given, discussed to return sooner if condition worsens. Patient understood and agreed with this plan. I have discussed the patient to follow-up with podiatry Departure Diagnosis: Primary Impression: Ingrown toenail Additional Impression: Paronychia Condition: Stable Patient Instructions: Understanding Ingrown Toenails, Ingrown Toenail, Excised , Ingrown Toenail, No Infect (Hometx), Ingrown Toenail, Infected (Abx Only) Referrals: KATHYA MCLAIN RONALD J. DPM CLEMENTE, THOMAS FRANCIS Additional Instructions: Visite a stanley mdico maana para un EXAMEN.Regrese a estas instalaciones si no se mejora danyelle esperbamos o danyelle le dijimos. Specialist:Usted tiene tristin condicin mdica que requiere que kaley a un especialista dentro de los prximos 1-2 lee.POR FAVOR,CON [place] SEGUIMIENTO DE PRIMARIA PHSICIAN refferal. SI USTED NO TIENE UN MDICO GENERAL Y / O USTED NO PUEDE PAGAR sonal a un mdico,los siguientes cummings RECURSOS sido suministrado a usted. ES [place] RESPONSABILIDAD PARA SER VISTOS POR EL ESPECIALISTA: [place] toda la medicina fernanda y danyelle se le indic. Regrese a estas instalaciones si no se mejora danyelle esperbamos o danyelle le dijimos. TANIKA LANZA PA-C Dec 09, 2016 00:58
== END 2016-12-09 00:55 | disposition home or self-care (01) ==
LOC: FTE 23:57
DX: L60.0 Ingrowing nail (principal)
CPT/HCPCS: 11765; Z7502; Z7610